=== PATIENT | male | born 2000 | race Caucasian/White ===

== ENCOUNTER 2022-06-11 11:10 | Emergency (ER) | payer OTHER ==
[~2022-06-11] VITALS: Ht 172.7 cm; Wt 64.0 kg
[2022-06-11] MEDS ORDERED: IBUP-1114 PO (11:25)
[2022-06-11] MEDS ORDERED: ACETAMINOPHEN TAB 650MG DOSE (2X325MG) PO ONE (12:35)
[2022-06-11] MEDS ORDERED: KETOROLAC 30 MG/ML 1ML VIAL IV ONE (12:35)
[2022-06-11 12:53] LABS: BASO % 0.1 % (0.0-1.0); EOS % 0.1 % (0.0-3.0); HEMATOCRIT 49.2 % (42.0-52.0); HEMOGLOBIN 16.3 g/dl (13.5-17.5); LYMPH # 0.5 10^3/uL (1.5-5.0); LYMPH % 4.3 % (24.0-44.0); MEAN CORPUSCULAR HEMOGLOBIN 31.2 pg (27.0-33.0); MEAN CORPUSCULAR HGB CONC 33.1 g/dl (32.0-36.5); MEAN CORPUSCULAR VOLUME 94.1 fl (80.0-96.0); MONO # 0.6 10^3/uL (0.0-0.8); MONO % 4.8 % (2.0-8.0); NEUTROPHILS # 10.4 10^3/uL (1.5-8.5); NEUTROPHILS % 90.4 % (36.0-66.0); PLATELET COUNT, AUTOMATED 170 10^3/uL (150-450); RED BLOOD COUNT 5.23 10^6/uL (4.30-6.10); WHITE BLOOD COUNT 11.5 10^3/uL (4.0-10.0)
[2022-06-11 13:12] LABS: ERYTHROCYTE SEDIMENTATION RATE 19 mm/hr (0-15)
[2022-06-11] MEDS ORDERED: ISOVUE-370 76% 100ML VIAL As Ordered ONE (13:25)
[2022-06-11] MEDS ORDERED: CLEO300C2 PO (14:07)
[2022-06-11] MEDS ORDERED: CLEO150C PO (14:07)
[2022-06-11 14:44] VITALS: BP 125/62
[2022-06-11] MEDS ORDERED: CLINDAMYCIN 900 MG in IV 1 EA IV ONE (15:00)
== END 2022-06-11 15:19 | disposition home or self-care (01) ==
LOC: M ED 11:10
DX: K04.7 Periapical abscess without sinus (principal); L03.211 Cellulitis of face; Z88.0 Allergy status to penicillin
CPT/HCPCS: 70487; 80047; 85025; 85652; 86140; 96365; 96375; 99283; J1885; Q9967